=== PATIENT | female | born 1970 | race African-American/Black ===

== ENCOUNTER 2022-12-24 10:54 | Day surgery (SDC) | payer OTHER ==
[2022-12-20 13:10] VITALS: BMI 44.6
[2022-12-24] MEDS ORDERED: PROPOFOL 20 ML ONE (13:03)
[2022-12-24 13:40] VITALS: TEMP 98
[2022-12-24 13:41] VITALS: RESP 18
[2022-12-24 13:42] VITALS: BP 131/81; PULSE 74
== END 2022-12-24 14:19 | disposition home or self-care (01) ==
LOC: FASU-ENDO 10:54
PROVIDERS: ATTEND Internal Medicine Gastroenterology
PROC: 0DB98ZX Excision of Duodenum, Via Natural or Artificial Opening Endoscopic, Diagnostic (ICD-10-PCS; 2022-12-24)
PROC: 0DB68ZX Excision of Stomach, Via Natural or Artificial Opening Endoscopic, Diagnostic (ICD-10-PCS; 2022-12-24)
PROC: 0DBK8ZX Excision of Ascending Colon, Via Natural or Artificial Opening Endoscopic, Diagnostic (ICD-10-PCS; principal; 2022-12-24 12:44)
DX: Z12.11 Encounter for screening for malignant neoplasm of colon (principal); D50.9 Iron deficiency anemia, unspecified; D12.2 Benign neoplasm of ascending colon; K57.30 Diverticulosis of large intestine without perforation or abscess without bleeding; Z01.818 Encounter for other preprocedural examination; K29.50 Unspecified chronic gastritis without bleeding; K44.9 Diaphragmatic hernia without obstruction or gangrene
CPT/HCPCS: 81025; 88305-TC